=== PATIENT | male | born 1960 | race Caucasian/White ===

== ENCOUNTER 2017-02-19 10:24 | Inpatient (IN) ==
[2017-02-19] MEDS ORDERED: ASPIRIN 325 MG TABLET PO STA (12:12)
[2017-02-19] MEDS ORDERED: ASPIRIN 325 MG TABLET ONE (12:18)
[2017-02-19] MEDS ORDERED: ONDANSETRON 4 MG/2 ML VIAL ONE (12:27)
[2017-02-19] MEDS ORDERED: ONDANSETRON 4 MG/2 ML VIAL IV STA (12:28)
[2017-02-19 12:35] LABS: Basophils # 0.1 10*3/uL (0.0-0.2); Basophils % 0.6 % (0.0-0.8); Eosinophils # 0.1 10*3/uL (0.0-0.87); Eosinophils % 1.2 % (0.00-10.9); Hematocrit 45.1 VOL% (42.0-52.0); Hemoglobin 15.4 GM/DL (14.0-18.0); Immature Granulocytes % 0.4 %; Immature Granulocytes Absolute 0.04 #; Lymphocytes # 3.5 10*3/uL (1.4-4.0); Lymphocytes % 33.4 % (21.2-54.2); Mean Corpuscular HGB Conc 34.1 GM/DL (32-36); Mean Corpuscular Hemoglobin 31 PG (27-34); Mean Platelet Volume 9.8 FL (9.6-12.0); Monocytes # 0.9 10*3/uL (0.11-0.8); Monocytes % 8.5 % (1.7-12.7); Neutrophils # 5.9 10*3/uL (1.4-7.4); Neutrophils % 55.9 % (38.7-73.9); Platelet Count 229 T/CUMM (130-400); Red Cell Distribution Width 12.6 % (9.3-17.3); White Blood Count 10.5 T/CUMM (4-12)
[2017-02-19] MEDS ORDERED: METOPROLOL TARTRATE 5 MG/5 ML VIAL IV STA (12:36)
[2017-02-19] MEDS ORDERED: MORPHINE 2 MG/1 ML SYRINGE IV STA (12:36)
[2017-02-19] MEDS ORDERED: ENOXAPARIN 120 MG/0.8 ML SYRINGE SUBCUT STA (12:36)
[2017-02-19] MEDS ORDERED: NITROGLYCERIN 2% OINT 1 INCH/GM PACK TOP STA (12:36)
[2017-02-19] MEDS ORDERED: NITROGLYCERIN 2% OINT 1 INCH/GM PACK TOP ONE (12:39)
[2017-02-19] MEDS ORDERED: ENOXAPARIN 120 MG/0.8 ML SYRINGE SUBCUT ONE (12:39)
[2017-02-19 12:46] LABS: PT Patient Result 10.2 SECS; Partial Thromboplastin Time 25.4 SECS (0-40)
[2017-02-19] MEDS ORDERED: MORPHINE 2 MG/1 ML SYRINGE ONE (13:06)
[2017-02-19] MEDS ORDERED: METOPROLOL TARTRATE 5 MG/5 ML VIAL IV ONE (13:06)
[2017-02-19 13:10] LABS: Alanine Aminotransferase 45 U/L (16-61); Albumin 4.1 G/DL (3.4-5.0); Alkaline Phosphatase 89 U/L (45-117); Aspartate Amino Transferase 27 U/L (0-37); Bilirubin,Total < 0.39 MG/DL (0.2-1.0); Blood Urea Nitrogen 11 MG/DL (7-18); Glucose 115 MG/DL (74-106); Magnesium 2.3 MG/DL (1.8-2.4); Osmolality,Calculated 280.3 MOS/KG (273-304); Potassium 4.3 MMOL/L (3.5-5.1); Sodium 141 MMOL/L (136-145); Total Protein 7.7 G/DL (6.4-8.3)
[2017-02-19] MEDS ORDERED: POTASSIUM CHLORIDE RIDER 10 MEQ in PREMIX 1 EACH IV PRN ×2 (15:27→15:29)
[2017-02-19] MEDS ORDERED: MAGNESIUM SULF RIDER 2 GM in PREMIX 1 EACH IV PRN ×2 (15:27→15:29)
[2017-02-19] MEDS ORDERED: DEXTROSE 50% 25 GM/50 ML VIAL IV PRN ×2 (15:33→16:18)
[2017-02-19] MEDS ORDERED: GLUCAGON 1 MG VIAL IM PRN ×2 (15:33→16:18)
[2017-02-19] MEDS ORDERED: ACETAMINOPHEN 325 MG TABLET PO PRN (16:18)
[2017-02-19] MEDS ORDERED: ONDANSETRON 4 MG/2 ML VIAL IV PRN (16:18)
[2017-02-19] MEDS ORDERED: MORPHINE 2 MG/1 ML SYRINGE IV PRN (16:18)
[2017-02-19 16:39] LABS: Thyroid Stimulating Hormone 1.13 uIU/ml (0.358-3.74)
[2017-02-19 16:40] LABS: Troponin I Only 0.36 NG/ML (0.00-0.045)
[2017-02-19] MEDS: INSULIN LISPRO 100 UNIT/ML SUBCUT SCH ×2 (19:21→21:56)
[2017-02-19] MEDS: INSULIN REGULAR 100 UNIT/ML SUBCUT SCH ×2 (19:21→21:55)
[2017-02-19] MEDS: NITROGLYCERIN 2% OINT 1 INCH/GM PACK TOP SCH (20:36)
[2017-02-19] MEDS: ROSUVASTATIN 20 MG TABLET PO SCH (21:55)
[2017-02-19] MEDS: METOPROLOL TARTRATE 25 MG TABLET PO SCH (21:55)
[2017-02-19] MEDS: DOCUSATE SODIUM 100 MG CAPSULE PO SCH (21:55)
[2017-02-20] MEDS: NITROGLYCERIN 2% OINT 1 INCH/GM PACK TOP SCH ×3 (00:25→17:57)
[2017-02-20] MEDS: SODIUM CHLORIDE 0.9% 1,000 ML IV SCH ×3 (00:25→09:42)
[2017-02-20 03:36] LABS: Basophils # 0.1 10*3/uL (0.0-0.2); Basophils % 0.6 % (0.0-0.8); Eosinophils # 0.1 10*3/uL (0.0-0.87); Eosinophils % 1.3 % (0.00-10.9); Hematocrit 39.3 VOL% (42.0-52.0); Hemoglobin 13.4 GM/DL (14.0-18.0); Immature Granulocytes % 0.2 %; Immature Granulocytes Absolute 0.02 #; Lymphocytes # 2.5 10*3/uL (1.4-4.0); Lymphocytes % 29.8 % (21.2-54.2); Mean Corpuscular HGB Conc 34.1 GM/DL (32-36); Mean Corpuscular Hemoglobin 32 PG (27-34); Mean Corpuscular Volume 92.9 FL (87-102); Mean Platelet Volume 10.3 FL (9.6-12.0); Monocytes # 0.7 10*3/uL (0.11-0.8); Neutrophils # 4.9 10*3/uL (1.4-7.4); Neutrophils % 60.1 % (38.7-73.9); Platelet Count 199 T/CUMM (130-400); Red Blood Count 4.23 MC/CUMM (3.8-5.5); Red Cell Distribution Width 12.9 % (9.3-17.3); White Blood Count 8.2 T/CUMM (4-12)
[2017-02-20 04:23] LABS: Magnesium 2.2 MG/DL (1.8-2.4); Potassium 4.2 MMOL/L (3.5-5.1); Risk Ratio 6.15; VLDL CHOLESTEROL 37.8 MG/DL
[2017-02-20] MEDS: SODIUM CHLORIDE 0.45% 1,000 ML IV SCH ×2 (04:35→15:32)
[2017-02-20] MEDS: INSULIN REGULAR 100 UNIT/ML SUBCUT SCH ×3 (08:36→20:18)
[2017-02-20] MEDS: INSULIN LISPRO 100 UNIT/ML SUBCUT SCH ×3 (08:36→17:57)
[2017-02-20] MEDS ORDERED: ASPIRIN EC 325 MG TABLET PO SCH (09:00)
[2017-02-20] MEDS ORDERED: PANTOPRAZOLE 40 MG TABLET PO SCH (09:00)
[2017-02-20] MEDS ORDERED: diphenhydrAMINE CAP 25 MG CAPSULE PO ONE (09:00)
[2017-02-20] MEDS ORDERED: DIAZEPAM 5 MG TABLET PO ONE (09:00)
[2017-02-20] MEDS: PANTOPRAZOLE 40 MG TABLET PO SCH (09:39)
[2017-02-20] MEDS: METOPROLOL TARTRATE 25 MG TABLET PO SCH (09:40)
[2017-02-20] MEDS: DOCUSATE SODIUM 100 MG CAPSULE PO SCH ×2 (09:48→20:17)
[2017-02-20] MEDS ORDERED: LIDOCAINE 1% 20 ML VIAL ONE (09:59)
[2017-02-20] MEDS ORDERED: HEPARIN/NACL 0.9% 2 UNITS/ML 2,000 ML IV ONE (09:59)
[2017-02-20] MEDS ORDERED: fentaNYL 100 MCG/2 ML VIAL ONE ×2 (10:02→11:29)
[2017-02-20] MEDS ORDERED: MIDAZOLAM 2 MG/2 ML VIAL ONE ×3 (10:02→11:29)
[2017-02-20] MEDS ORDERED: BIVALIRUDIN 250 MG VIAL IV ONE ×2 (10:25→10:57)
[2017-02-20] MEDS ORDERED: NITROGLYCERIN DRIP 50 MG/250 ML BOTTLE IV ONE (11:01)
[2017-02-20] MEDS ORDERED: NITROGLYCERIN DRIP 50 MG/250 ML BOTTLE IV SCH ×2 (11:05→17:30)
[2017-02-20] MEDS ORDERED: MORPHINE 10 MG/1 ML VIAL ONE (11:14)
[2017-02-20] MEDS ORDERED: HEPARIN/NACL 0.9% 2 UNITS/ML 1,000 ML IV ONE (11:23)
[2017-02-20] MEDS ORDERED: TICAGRELOR 90 MG TABLET ONE (12:07)
[2017-02-20] MEDS ORDERED: ACETAMINOPHEN/CODEINE 300-30 MG TABLET PO PRN (12:28)
[2017-02-20 14:25] LABS: Troponin I Only 0.977 NG/ML (0.00-0.045)
[2017-02-20] MEDS ORDERED: hydrALAZINE 20 MG/1 ML VIAL IV ONE (14:56)
[2017-02-20 16:00] LABS: Apearance,Urine CLEAR (Clear); Bilirubin,Urine Negative (Negative); Blood, Urine Small mg/dL (Negative); Glucose,Urine (UA) Negative (Negative); Ketones,Urine Negative (Negative); Mucus,Urine Occasional /LPF (Occasional); Nitrite,Urine Negative (Negative); Protein,Urine Negative; RBC,Urine 2 /HPF (0-4); Urine Color Yellow (Yellow); Urine Specific Gravity > 1.060 (1.001-1.035); Urine Urobilinogen < 2.0 EU/DL (0.2-1.0); WBC,Urine <1 /HPF (0-6)
[2017-02-20] MEDS ORDERED: METOPROLOL TARTRATE 5 MG/5 ML VIAL IV ONE (17:22)
[2017-02-20] MEDS ORDERED: hydrALAZINE 20 MG/1 ML VIAL IV PRN (19:16)
[2017-02-20] MEDS ORDERED: SODIUM CHLORIDE 0.45% 1,000 ML IV SCH (19:17)
[2017-02-20] MEDS ORDERED: ALPRAZolam 0.25 MG TABLET PO PRN (19:21)
[2017-02-20] MEDS: METOPROLOL TARTRATE 50 MG TABLET PO SCH (20:17)
[2017-02-20] MEDS: ROSUVASTATIN 20 MG TABLET PO SCH (20:18)
[2017-02-20] MEDS: TICAGRELOR 90 MG TABLET PO SCH (20:18)
[2017-02-20 22:23] LABS: Troponin I Only 0.771 NG/ML (0.00-0.045)
[2017-02-21 04:16] LABS: Basophils % 0.5 % (0.0-0.8); Eosinophils # 0.1 10*3/uL (0.0-0.87); Eosinophils % 1.3 % (0.00-10.9); Hemoglobin 12.5 GM/DL (14.0-18.0); Immature Granulocytes % 0.3 %; Immature Granulocytes Absolute 0.03 #; Lymphocytes % 23.4 % (21.2-54.2); Mean Corpuscular HGB Conc 32.9 GM/DL (32-36); Mean Corpuscular Hemoglobin 32 PG (27-34); Mean Corpuscular Volume 95.7 FL (87-102); Mean Platelet Volume 10.1 FL (9.6-12.0); Monocytes # 0.6 10*3/uL (0.11-0.8); Monocytes % 7.1 % (1.7-12.7); Neutrophils # 5.9 10*3/uL (1.4-7.4); Neutrophils % 67.4 % (38.7-73.9); Platelet Count 184 T/CUMM (130-400); Red Blood Count 3.97 MC/CUMM (3.8-5.5); Red Cell Distribution Width 12.7 % (9.3-17.3); White Blood Count 8.7 T/CUMM (4-12)
[2017-02-21 04:54] LABS: Potassium 4.2 MMOL/L (3.5-5.1)
[2017-02-21 05:17] LABS: Troponin I Only 0.796 NG/ML (0.00-0.045)
[2017-02-21] MEDS ORDERED: ENOXAPARIN 40 MG/0.4 ML SYRINGE SUBCUT SCH (06:00)
[2017-02-21] MEDS: PANTOPRAZOLE 40 MG TABLET PO SCH (08:43)
[2017-02-21] MEDS: METOPROLOL TARTRATE 50 MG TABLET PO SCH (08:43)
[2017-02-21] MEDS: TICAGRELOR 90 MG TABLET PO SCH ×2 (08:43→19:17)
[2017-02-21] MEDS: INSULIN REGULAR 100 UNIT/ML SUBCUT SCH ×3 (08:59→17:45)
[2017-02-21] MEDS ORDERED: ASPIRIN EC 81 MG TABLET PO SCH (09:00)
[2017-02-21] MEDS: DOCUSATE SODIUM 100 MG CAPSULE PO SCH (09:01)
[2017-02-21] MEDS ORDERED: LISINOPRIL 5 MG TABLET PO SCH (15:00)
[2017-02-21 17:32] VITALS: BP 151/98
== END 2017-02-21 19:20 | disposition home or self-care (01) | DRG 246 ==
LOC: N.ED 10:24 → N.EDINP 10:24 → N.TELEN 18:48 → N.ICU 02-20 15:04
PROVIDERS: ADMIT Family Medicine; ATTEND Family Medicine
PROC: CLCCHCL (ICD-10-PCS; 2017-02-20 10:45)

== ENCOUNTER 2017-02-22 10:00 | Observation (INO) ==
[2017-02-22 11:23] LABS: Apearance,Urine CLOUDY (Clear); Bacteria,Urine Moderate /HPF (Few); Bilirubin,Urine Negative (Negative); Blood, Urine Large mg/dL (Negative); Glucose,Urine (UA) Negative (Negative); Ketones,Urine Negative (Negative); Mucus,Urine Occasional /LPF (Occasional); Nitrite,Urine Negative (Negative); Protein,Urine 100 MG/DL; RBC,Urine 3580 /HPF (0-4); Urine Color Red (Yellow); Urine Specific Gravity 1.012 (1.001-1.035); Urine Urobilinogen < 2.0 EU/DL (0.2-1.0); WBC,Urine 639 /HPF (0-6)
[2017-02-22] MEDS ORDERED: cefTRIAXone 1,000 MG in SODIUM CHLORIDE 0.9% 100 ML IV STA (12:38)
[2017-02-22] MEDS ORDERED: cefTRIAXone 1,000 MG VIAL ONE (12:49)
[2017-02-22 13:18] LABS: Basophils % 0.4 % (0.0-0.8); Eosinophils # 0.1 10*3/uL (0.0-0.87); Eosinophils % 0.6 % (0.00-10.9); Hematocrit 38.3 VOL% (42.0-52.0); Immature Granulocytes % 0.4 %; Immature Granulocytes Absolute 0.04 #; Lymphocytes # 2.2 10*3/uL (1.4-4.0); Lymphocytes % 19.9 % (21.2-54.2); Mean Corpuscular HGB Conc 33.9 GM/DL (32-36); Mean Corpuscular Hemoglobin 32 PG (27-34); Mean Corpuscular Volume 93.4 FL (87-102); Mean Platelet Volume 9.8 FL (9.6-12.0); Monocytes # 0.7 10*3/uL (0.11-0.8); Monocytes % 6.9 % (1.7-12.7); Neutrophils # 7.7 10*3/uL (1.4-7.4); Neutrophils % 71.8 % (38.7-73.9); Platelet Count 180 T/CUMM (130-400); Red Cell Distribution Width 12.5 % (9.3-17.3); White Blood Count 10.8 T/CUMM (4-12)
[2017-02-22 13:45] LABS: Albumin 3.7 G/DL (3.4-5.0); Bilirubin,Total 0.5 MG/DL (0.2-1.0); Calcium 8.3 MG/DL (8.5-10.1); Osmolality,Calculated 281.1 MOS/KG (273-304); Potassium 3.9 MMOL/L (3.5-5.1); Total Protein 7.2 G/DL (6.4-8.3)
[2017-02-22 17:09] LABS: Apearance,Urine Slightly Hazy (Clear); Bacteria,Urine Occasional /HPF (Few); Bilirubin,Urine Negative (Negative); Blood, Urine Large mg/dL (Negative); Glucose,Urine (UA) Negative (Negative); Ketones,Urine Negative (Negative); Mucus,Urine Occasional /LPF (Occasional); Nitrite,Urine Negative (Negative); Protein,Urine Negative; RBC,Urine 281 /HPF (0-4); Squamous Epithelial Cell,Urine Occasional /HPF (0-10); Urine Color Yellow (Yellow); Urine Specific Gravity 1.015 (1.001-1.035); Urine Urobilinogen < 2.0 EU/DL (0.2-1.0); WBC,Urine 82 /HPF (0-6)
[2017-02-22] MEDS: FINASTERIDE 5 MG TABLET PO SCH (21:53)
[2017-02-22] MEDS: ROSUVASTATIN 20 MG TABLET PO SCH (21:53)
[2017-02-22] MEDS: TICAGRELOR 90 MG TABLET PO SCH (21:53)
[2017-02-22] MEDS: KETOCONAZOLE 2% CREAM 30 GM TUBE TOP SCH (22:00)
[2017-02-23 04:57] LABS: Basophils # 0.1 10*3/uL (0.0-0.2); Basophils % 0.6 % (0.0-0.8); Eosinophils # 0.1 10*3/uL (0.0-0.87); Eosinophils % 1.3 % (0.00-10.9); Hematocrit 36.8 VOL% (42.0-52.0); Hemoglobin 12.6 GM/DL (14.0-18.0); Immature Granulocytes % 0.5 %; Immature Granulocytes Absolute 0.05 #; Lymphocytes # 1.9 10*3/uL (1.4-4.0); Lymphocytes % 18.5 % (21.2-54.2); Mean Corpuscular HGB Conc 34.2 GM/DL (32-36); Mean Corpuscular Hemoglobin 32 PG (27-34); Mean Corpuscular Volume 93.2 FL (87-102); Mean Platelet Volume 9.9 FL (9.6-12.0); Monocytes # 0.7 10*3/uL (0.11-0.8); Monocytes % 6.7 % (1.7-12.7); Neutrophils # 7.4 10*3/uL (1.4-7.4); Neutrophils % 72.4 % (38.7-73.9); Platelet Count 170 T/CUMM (130-400); Red Blood Count 3.95 MC/CUMM (3.8-5.5); Red Cell Distribution Width 12.5 % (9.3-17.3); White Blood Count 10.2 T/CUMM (4-12)
[2017-02-23 05:26] LABS: Calcium 8.2 MG/DL (8.5-10.1); Osmolality,Calculated 276.5 MOS/KG (273-304); Potassium 4.1 MMOL/L (3.5-5.1)
[2017-02-23] MEDS: METOPROLOL SUCCINATE XL 50 MG TABLET PO SCH (08:50)
[2017-02-23] MEDS: TICAGRELOR 90 MG TABLET PO SCH ×2 (08:50→21:11)
[2017-02-23] MEDS: ASPIRIN EC 81 MG TABLET PO SCH (08:51)
[2017-02-23] MEDS: KETOCONAZOLE 2% CREAM 30 GM TUBE TOP SCH ×2 (08:51→21:10)
[2017-02-23] MEDS ORDERED: LISINOPRIL 5 MG TABLET PO SCH (09:00)
[2017-02-23] MEDS ORDERED: MORPHINE 2 MG/1 ML SYRINGE IV PRN (13:54)
[2017-02-23 14:24] LABS: Basophils % 0.3 % (0.0-0.8); Eosinophils # 0.1 10*3/uL (0.0-0.87); Eosinophils % 1.1 % (0.00-10.9); Hematocrit 35.7 VOL% (42.0-52.0); Hemoglobin 12.1 GM/DL (14.0-18.0); Immature Granulocytes % 0.5 %; Immature Granulocytes Absolute 0.06 #; Lymphocytes # 2.1 10*3/uL (1.4-4.0); Lymphocytes % 16.7 % (21.2-54.2); Mean Corpuscular HGB Conc 33.9 GM/DL (32-36); Mean Corpuscular Hemoglobin 32 PG (27-34); Mean Corpuscular Volume 93.7 FL (87-102); Mean Platelet Volume 10.1 FL (9.6-12.0); Monocytes # 0.6 10*3/uL (0.11-0.8); Monocytes % 4.8 % (1.7-12.7); Neutrophils # 9.5 10*3/uL (1.4-7.4); Neutrophils % 76.6 % (38.7-73.9); Platelet Count 188 T/CUMM (130-400); Red Blood Count 3.81 MC/CUMM (3.8-5.5); Red Cell Distribution Width 12.5 % (9.3-17.3); White Blood Count 12.4 T/CUMM (4-12)
[2017-02-23] MEDS: ROSUVASTATIN 20 MG TABLET PO SCH (21:10)
[2017-02-23] MEDS: FINASTERIDE 5 MG TABLET PO SCH (21:10)
[2017-02-23] MEDS: SULFAMETHOX/TRIMETHOPRIM 800-160 MG TABLET PO SCH (21:11)
[2017-02-24 05:31] LABS: Basophils # 0.1 10*3/uL (0.0-0.2); Basophils % 0.5 % (0.0-0.8); Eosinophils # 0.1 10*3/uL (0.0-0.87); Eosinophils % 1.2 % (0.00-10.9); Hematocrit 31.5 VOL% (42.0-52.0); Hemoglobin 10.6 GM/DL (14.0-18.0); Immature Granulocytes % 0.5 %; Immature Granulocytes Absolute 0.06 #; Lymphocytes # 2.3 10*3/uL (1.4-4.0); Lymphocytes % 18.7 % (21.2-54.2); Mean Corpuscular HGB Conc 33.7 GM/DL (32-36); Mean Corpuscular Hemoglobin 32 PG (27-34); Mean Platelet Volume 10.4 FL (9.6-12.0); Monocytes # 0.9 10*3/uL (0.11-0.8); Neutrophils # 8.7 10*3/uL (1.4-7.4); Neutrophils % 72.1 % (38.7-73.9); Platelet Count 188 T/CUMM (130-400); Red Blood Count 3.35 MC/CUMM (3.8-5.5); Red Cell Distribution Width 12.6 % (9.3-17.3); White Blood Count 12.1 T/CUMM (4-12)
[2017-02-24 05:47] LABS: Calcium 7.8 MG/DL (8.5-10.1); Osmolality,Calculated 279.4 MOS/KG (273-304)
[2017-02-24] MEDS: METOPROLOL SUCCINATE XL 50 MG TABLET PO SCH (09:45)
[2017-02-24] MEDS: LISINOPRIL 10 MG TABLET PO SCH (09:45)
[2017-02-24] MEDS: TICAGRELOR 90 MG TABLET PO SCH ×2 (09:45→21:38)
[2017-02-24] MEDS: SULFAMETHOX/TRIMETHOPRIM 800-160 MG TABLET PO SCH ×2 (09:45→21:36)
[2017-02-24] MEDS: ASPIRIN EC 81 MG TABLET PO SCH (09:45)
[2017-02-24] MEDS: KETOCONAZOLE 2% CREAM 30 GM TUBE TOP SCH ×2 (09:51→21:38)
[2017-02-24 13:41] LABS: Hemoglobin 10.9 GM/DL (14.0-18.0)
[2017-02-24] MEDS ORDERED: BISACODYL 5 MG TABLET PO PRN (15:57)
[2017-02-24] MEDS ORDERED: ONDANSETRON 4 MG/2 ML VIAL IV PRN (15:57)
[2017-02-24 18:30] LABS: Hematocrit 32.8 VOL% (42.0-52.0); Hemoglobin 11.1 GM/DL (14.0-18.0)
[2017-02-24] MEDS: ROSUVASTATIN 20 MG TABLET PO SCH (21:36)
[2017-02-24] MEDS: ZALEPLON 5 MG CAPSULE PO PRN (21:38)
[2017-02-24] MEDS: FINASTERIDE 5 MG TABLET PO SCH (21:38)
[2017-02-25 04:23] LABS: Basophils # 0.1 10*3/uL (0.0-0.2); Basophils % 0.6 % (0.0-0.8); Eosinophils # 0.2 10*3/uL (0.0-0.87); Eosinophils % 1.8 % (0.00-10.9); Hemoglobin 11.3 GM/DL (14.0-18.0); Immature Granulocytes % 0.6 %; Immature Granulocytes Absolute 0.06 #; Lymphocytes # 2.8 10*3/uL (1.4-4.0); Mean Corpuscular HGB Conc 34.2 GM/DL (32-36); Mean Corpuscular Hemoglobin 32 PG (27-34); Mean Corpuscular Volume 92.2 FL (87-102); Mean Platelet Volume 10.8 FL (9.6-12.0); Monocytes # 0.8 10*3/uL (0.11-0.8); Neutrophils # 6.1 10*3/uL (1.4-7.4); Platelet Count 217 T/CUMM (130-400); Red Blood Count 3.58 MC/CUMM (3.8-5.5); Red Cell Distribution Width 12.7 % (9.3-17.3)
[2017-02-25 04:51] LABS: Calcium 7.8 MG/DL (8.5-10.1); Potassium 4.3 MMOL/L (3.5-5.1)
[2017-02-25] MEDS: ASPIRIN EC 81 MG TABLET PO SCH (10:03)
[2017-02-25] MEDS: SULFAMETHOX/TRIMETHOPRIM 800-160 MG TABLET PO SCH ×2 (10:03→22:08)
[2017-02-25] MEDS: LISINOPRIL 10 MG TABLET PO SCH (10:04)
[2017-02-25] MEDS: PANTOPRAZOLE 40 MG TABLET PO SCH (10:04)
[2017-02-25] MEDS: METOPROLOL SUCCINATE XL 50 MG TABLET PO SCH (10:04)
[2017-02-25] MEDS: TICAGRELOR 90 MG TABLET PO SCH ×2 (10:16→22:09)
[2017-02-25] MEDS: KETOCONAZOLE 2% CREAM 30 GM TUBE TOP SCH ×2 (10:16→22:09)
[2017-02-25] MEDS ORDERED: MORPHINE 10 MG/1 ML VIAL IV PRN (14:30)
[2017-02-25] MEDS: FINASTERIDE 5 MG TABLET PO SCH (22:08)
[2017-02-25] MEDS: ZALEPLON 5 MG CAPSULE PO PRN (22:09)
[2017-02-25] MEDS: ROSUVASTATIN 20 MG TABLET PO SCH (22:09)
[2017-02-26 05:38] LABS: Basophils # 0.1 10*3/uL (0.0-0.2); Basophils % 0.7 % (0.0-0.8); Eosinophils # 0.2 10*3/uL (0.0-0.87); Eosinophils % 2.3 % (0.00-10.9); Hematocrit 32.1 VOL% (42.0-52.0); Hemoglobin 10.6 GM/DL (14.0-18.0); Immature Granulocytes % 0.6 %; Immature Granulocytes Absolute 0.05 #; Mean Corpuscular Hemoglobin 32 PG (27-34); Mean Corpuscular Volume 96.7 FL (87-102); Mean Platelet Volume 10.5 FL (9.6-12.0); Monocytes # 0.7 10*3/uL (0.11-0.8); Neutrophils # 5.4 10*3/uL (1.4-7.4); Neutrophils % 64.4 % (38.7-73.9); Platelet Count 222 T/CUMM (130-400); Red Blood Count 3.32 MC/CUMM (3.8-5.5); Red Cell Distribution Width 12.9 % (9.3-17.3); White Blood Count 8.4 T/CUMM (4-12)
[2017-02-26 06:04] LABS: Calcium 8.1 MG/DL (8.5-10.1); Osmolality,Calculated 288.1 MOS/KG (273-304); Potassium 4.4 MMOL/L (3.5-5.1)
[2017-02-26] MEDS: TICAGRELOR 90 MG TABLET PO SCH (09:10)
[2017-02-26] MEDS: PANTOPRAZOLE 40 MG TABLET PO SCH (09:11)
[2017-02-26] MEDS: SULFAMETHOX/TRIMETHOPRIM 800-160 MG TABLET PO SCH (09:11)
[2017-02-26] MEDS: ASPIRIN EC 81 MG TABLET PO SCH (09:12)
[2017-02-26] MEDS: METOPROLOL SUCCINATE XL 50 MG TABLET PO SCH (09:12)
[2017-02-26] MEDS: LISINOPRIL 10 MG TABLET PO SCH (09:12)
[2017-02-26] MEDS: KETOCONAZOLE 2% CREAM 30 GM TUBE TOP SCH (09:14)
[2017-02-26 11:32] VITALS: BP 109/64
== END 2017-02-26 15:08 | disposition home or self-care (01) ==
LOC: N.EDINP 10:00 → N.ED 10:00 → N.TELEN 15:15
PROVIDERS: ADMIT Internal Medicine Cardiovascular Disease; ATTEND Internal Medicine Cardiovascular Disease